=== PATIENT | male | born 1955 | race Caucasian/White ===

== ENCOUNTER 2019-06-22 08:01 | Observation (INO) | payer BC ==
[2019-06-22 08:43] LABS: ABS Eosinophils 0.1 10^3/ul (0-0.6); ABS Lymphocytes 0.6 10^3/ul (1.0-4.8); ABS Monocytes 0.2 10^3/ul (0-0.8); ABS Neutrophils 1.6 10^3/ul (1.5-7.7); Eosinophil % 2.7 %; Hematocrit 18 % (42-52); Mean Corpuscular HGB Conc 34 g/dL (31-36); Mean Corpuscular Hemoglobin 31 pg (27-31); Mean Corpuscular Volume 91 fL (80-94); Mean Platelet Volume 7.8 fL (7.4-10.4); Nucleated Red Blood Cells % 0.2; Platelet Count 60 10^3/uL (150-450); Red Cell Distribution Width 13 % (10-15); White Blood Count 2.5 10^3/uL (3.5-10.8)
[2019-06-22 09:06] LABS: Immature Retic Fraction 0.33; RBC Retic Count 2.02 10^6/uL (4.18-5.48)
[2019-06-22 09:07] LABS: Corrected Retic Count 0.6 % (0.5-1.5); Hematocrit for Retic CNT 18 % (42-52)
[2019-06-22 09:46] LABS: ABS Eosinophils 0.1 10^3/ul (0-0.6); ABS Monocytes 0.5 10^3/ul (0-0.8); ABS Neutrophils 5.8 10^3/ul (1.5-7.7); Eosinophil % 0.8 %; Hematocrit 49 % (42-52); Hemoglobin 16.2 g/dL (14.0-18.0); Mean Corpuscular HGB Conc 34 g/dL (31-36); Mean Corpuscular Hemoglobin 30 pg (27-31); Mean Corpuscular Volume 90 fL (80-94); Mean Platelet Volume 8.7 fL (7.4-10.4); Platelet Count 155 10^3/uL (150-450); Red Blood Count 5.36 10^6 /uL (4.18-5.48); Red Cell Distribution Width 14 % (10-15); White Blood Count 7.5 10^3/uL (3.5-10.8)
[2019-06-22 09:54] LABS: Activated Partial Thrombo Time 33.7 seconds (26.0-38.0)
[2019-06-22 10:01] LABS: Albumin 4.2 g/dL (3.2-5.2); Calcium 9.1 mg/dL (8.6-10.3); Magnesium 2.1 mg/dL (1.9-2.7); Potassium 3.9 mmol/L (3.5-5.0); Total Bilirubin 0.7 mg/dL (0.2-1.0)
[2019-06-22 10:07] LABS: Albumin/Globulin Ratio 1.2 (1-3); BUN/Creatinine Ratio 21.1 (8-20); EGFR African American 102.8 (>60); Globulin 3.4 g/dL (2-4); Total Protein 7.6 g/dL (6.4-8.9)
[2019-06-22 10:16] LABS: INR 1.04 (0.82-1.09)
[2019-06-22 11:35] LABS: Urine Appearance Clear; Urine Bacteria Absent (Absent); Urine Bilirubin Negative (Negative); Urine Blood 1+ (Negative); Urine Color Straw; Urine Glucose Negative (Negative); Urine Ketones Negative (Negative); Urine Nitrite Negative (Negative); Urine Protein Negative (Negative); Urine Red Blood Cell Trace(0-2/hpf) (Absent); Urine Specific Gravity 1.005 (1.010-1.030); Urine Urobilinogen Negative (Negative); Urine White Blood Cell Trace(0-5/hpf) (Absent)
--- NOTE | 2019-06-22 13:48 | CONS ---
NEUROLOGY CONSULTATION NOTE: DATE OF CONSULT: 06/22/19 CONSULTING PROVIDER: CARLOS Kauffman REASON FOR CONSULT: Seizure. CHIEF COMPLAINT: "I was told I had a seizure." HISTORY OF PRESENT ILLNESS: Mr. 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 with seizure-like activity. The history was mostly obtained by the Horace Jordan, who is the patient's partner. Horace stated that he heard a loud noise in Mr. Saldivar's room. Horace rushed to the room and found the patient shaking all over. He was lying in bed on the side with convulsive- like movements for approximately 30 seconds. This was followed by heavy labored breathing, confusion, and tongue bitting. There was no incontinence. Horace called the EMS. When EMS arrived, the patient had stopped convulsing. The convulsion lasted approximately 1 to 1-1/2 minutes. The patient was confused. He was refusing to put on any cloths. However, after 15 minutes, the patient was able to standup to go to the bathroom and urinate. By the time the patient presented to the ER, the patient was awake, alert, and not aware of the incident. The patient also complains of fatigue, morning headaches, excessive drowsiness requiring naps throughout the day, and snoring at night. The patient and his partner sleep in separate rooms due to the patient's excessive loud snoring. He has never been evaluated for obstructive sleep apnea. Yesterday, the patient was reported to work outside in the lawn. The patient was working throughout the day. He did take a caffeine tablet, which he takes on a daily basis. The strength of caffeine tablet is 200 mg. He does complain of insomnia and trouble staying asleep, especially the night before yesterday. The patient also has history of migraine headaches. He is noticing increase in migraine headaches over the last 1 month. He has an aura with flashing lights and blotchy vision for about 5 to 10 minutes. Subsequent to this, he develops unilateral head pain, could be on the right or left. He has nausea and photosensitivity. He does take magnesium daily. Usually, resting for few hours alleviates the pain. He can have a headache for up to 2 days. SEIZURE HISTORY: The patient had 3 convulsions as a child when he was at the age of 2 until 4. The seizures were associated with fevers. He remembers his mother putting him in a cold, almost ice bath. He was never treated with seizure medications. He has no family history of epilepsy. His mother suffered a ministroke. He denied any recreational drug use. He drinks alcohol occasionally. He used to take Xanax for vertigo in 2013, but he has not had any benzodiazepines since then. Seizure risk factors: The patient denied any meningitis or encephalitis. The patient was born as a full-term child with normal vaginal delivery. There was no history of developmental delay. No history of spinal cord or brain surgeries. PAST MEDICAL HISTORY: Migraine headaches, history of vertigo, colectomy resection. The patient has GERD. MEDICATIONS: 1. Multivitamin. 2. Pepcid 20 mg p.o. at bedtime. ALLERGIES: No known drug allergies. FAMILY HISTORY: Mother suffered a ministroke. Father did not have any neurological problems. SOCIAL HISTORY: The patient is retired. He denied any tobacco use. He drinks alcohol occasionally. He used to work as a senior database engineer. REVIEW OF SYSTEMS: A 14-point review of systems was obtained and otherwise negative except for what was mentioned in the HPI. PHYSICAL EXAM: Vitals: Temperature of 97.9, pulse of 103, respiratory rate of 15, oxygen saturation of 97%, blood pressure of 169/76. General: Well- nourished, well- appearing man who is fatigued and has muscle aches, but is in no acute distress. Head: Atraumatic, normocephalic. Eyes: Conjunctivae/ corneas are clear. Oral cavity: He has got a laceration of the lateral aspect of the tongue on the right. Neck is supple and symmetrical with no carotid bruits. No lymphadenopathy. Mallampati score was 3. Respiratory: Clear to auscultation bilaterally with no rhonchi or wheezing. Cardiovascular: Regular rate and rhythm with normal S1, S2 with no murmurs. Extremities: No hammer toes or high arches. No cyanosis. Skin: No skin lesions or lacerations. Psych : Normal mood and broad affect. Easy to establish rapport. Neurological: Mental Status: Awake, alert, and oriented to person, place, time, and general circumstances. Speech and language including expression, comprehension, and repetition were assessed and found to be normal. Cranial Nerves: Pupils equal, round, and reactive to light. Extraocular muscles are intact. Normal confrontation testing bilaterally. Normal sensation to the face bilaterally. No facial asymmetry. Tongue is symmetrical and midline with no atrophy or fasciculation. Motor Examination: 5/5 strength in the upper and lower extremities with normal tone and posture. Sensory: Normal sensation to light touch throughout. Normal vibratory sensation and proprioception at the great toes. Reflexes 2+ in the biceps, triceps, brachioradialis, knee, and ankles bilaterally and patella and Achilles bilaterally. Downgoing plantar responses. Coordination: Normal [id number] and [id number] testing. Gait: Not assessed due to the patient's recent seizure. DIAGNOSTIC STUDIES/LAB DATA: Please note that the patient initially had abnormal CBC that was thought to be due to a lab error; otherwise, WBC is 7.5, RBCs 2.02, hemoglobin of 16, hematocrit of 49, and platelet count of 155. INR is 1.04. Sodium of 140, potassium 3.9, chloride 107, carbon dioxide 24, anion gap of 9, BUN of 19, creatinine of 0.90. BUN to creatinine ratio is 21. Glucose of 127. Lactic acid was 2.6. CK of 185. Urinalysis negative for pyuria. CT of the head without contrast was personally reviewed. There is no evidence of acute intracranial abnormality. ASSESSMENT AND RECOMMENDATIONS: Mr. Donis Saldivar is a 63-year-old man with history of migraine headache and presumably undiagnosed obstructive sleep apnea who presented with generalized convulsive seizure. The patient has history of febrile seizures as a child. His neurological examination is nonfocal other than laceration in the right lateral aspect of the tongue. CT of the head did not reveal any mass effect or tumors. Overall, on clinical grounds, I suspect the patient had a provoked seizure that I suspect is related to undiagnosed obstructive sleep apnea causing hypoxia, dehydration as well as insomnia or sleep deprivation. He has not taken significant amount of caffeine, although the caffeine tablets could also be contributing. We need to rule out any secondary causes of seizures such as tumor and other structural abnormalities. He has no evidence of electrolyte imbalance or any infectious explanation to his seizure. He has history of febrile seizures which increases his risk for temporal lobe epilepsy. Recommendation: I have ordered an MRI of the brain with and without contrast, seizure protocol, bedside EEG to evaluate for epileptiform abnormalities, and a urine tox screen. I also advised the patient to not drive, operate any heavy machinery, climb ladders, or rooftops until cleared by neurologist in the outpatient setting. He will need a referral to his primary care doctor to get an outpatient sleep evaluation to evaluate for obstructive sleep apnea and treat accordingly. The patient and his partner at bedside agreed to the recommendation. In regards to the migraine headaches, I informed the patient that we can prescribe him gabapentin which may help with migraine prevention. This could also be started as an outpatient. I encouraged him to continue taking magnesium supplements daily. I feel if we treat his underlying obstructive sleep apnea, his headaches may decrease as the headaches can be secondary to that. I will continue to follow. [id number]/[facility] #: [id number] NIKA
[2019-06-22 14:03] LABS: TSH (Thyroid Stimulating Horm) 0.71 mcIU/mL (0.34-5.60)
[2019-06-22] MEDS ORDERED: levETIRAcetam 1000 MG IVPREMIX* 100 ML BAG IV ONE (14:38)
[2019-06-22] MEDS ORDERED: Gadoteridol* (CONTRAST) 279.3 MG/ML 10 ML IV ONE (15:25)
[2019-06-22 15:26] LABS: Hemoglobin 6.2 g/dL (14.0-18.0)
--- NOTE | 2019-06-22 15:38 | ED ---
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 Patient states he awoke to find EMS standing over him awakening him. He states he had one seizure at the age of approximately [age] years old and does not remember this. He has had no seizure-like activity since that time. He does have a history of migraines and vertigo, but takes no medications for these. He has not seen a neurologist for these diagnoses. Pt currently states he is fatigued, somewhat confused, but is answering questions appropriately and slow to respond and endorsing tongue pain. Patient denies any recent illness, recent fatigue or other illness. He states he worked outside all day yesterday which might be contributory. He takes no medications. Multivitamins daily. He denies any recent migraines or vertigo-like symptoms. He states he has not had a brain CT in several years to his knowledge. - History Of Current Complaint Chief Complaint: EDSeizure Time Seen by Provider: 06/22/19 08:04 Hx Obtained From: Patient Onset/Duration: Sudden Onset Aggravating Factor(s): Nothing Alleviating Factor(s): Nothing Associated Signs And Symptoms: Negative - Risk Factors SAH Risk Factors: Negative Meningitis Risk Factors: Negative SDH Risk Factor: Negative - Allergies/Home Medications Allergies/Adverse Reactions: Allergies Allergy/AdvReac Type Severity Reaction Status Date / Time No Known Allergies Allergy Verified 06/22/19 08:12 Home Medications: Home Medications Famotidine TAB* [Pepcid 20 MG TAB*] 20 mg PO DAILY 06/22/19 [History Confirmed 06/22/19] Multivitamins/Minerals TAB* [Theragran/minerals TAB*] 1 tab PO DAILY 06/22/19 [ History Confirmed 06/22/19] PMH/Surg Hx/FS Hx/Imm Hx Previously Healthy: Yes Endocrine/Hematology History: Denies: Hx Diabetes Cardiovascular History: Denies: Hx Hypertension, Hx Pacemaker/ICD History: Denies: Hx Renal Disease Sensory History: Denies: Hx Hearing Aid Psychiatric History: Denies: Hx Panic Disorder - Surgical History Surgery Procedure, Year, and Place: PARTIAL COLONECTOMY - SEVERE DIVERTICULITIS - W/ RESECTION 2000. Lt LEG - VARICOSE VEINS - 2005. TONSILS - Immunization History Hx Pertussis Vaccination: No Immunizations Up to Date: Yes Infectious Disease History: No Infectious Disease History: Denies: Traveled Outside the [place] in Last 30 Days - Social History Occupation: Employed Full-time Lives: With Family Alcohol Use: Occasionally Hx Substance Use: No Substance Use Type: Reports: None Hx Tobacco Use: Yes Smoking Status (MU): Former Smoker Review of Systems Positive: Fatigue. Negative: Fever, Chills, Skin Diaphoresis ENT: Other - tongue pain - R sided tongue laceration Negative: Palpitations, Chest Pain Negative: Shortness Of Breath, Cough Negative: Vomiting, Diarrhea, Nausea Positive: see HPI Positive: Weakness Psychological: Normal All Other Systems Reviewed And Are Negative: Yes Physical Exam Triage Information Reviewed: Yes Vital Signs On Initial Exam: Initial Vitals Temp Pulse Resp BP Pulse Ox 97.9 F 102 18 174/96 97 06/22/19 08:09 06/22/19 08:09 06/22/19 08:09 06/22/19 08:09 06/22/19 08:09 Vital Signs Reviewed: Yes Appearance: Positive: Well-Appearing, Well-Nourished Skin: Positive: Warm, Skin Color Reflects Adequate Perfusion Head/Face: Positive: Normal Head/Face Inspection Eyes: Positive: EOMI, CARROLL ENT: Positive: Other - tongue pain - R sided tongue laceration Neck: Positive: Supple Respiratory/Lung Sounds: Positive: Clear to Auscultation, Breath Sounds Present Cardiovascular: Positive: RRR, Pulses are Symmetrical in both Upper and Lower Extremities - Course Musculoskeletal: Positive: Strength/ROM Intact Neurological: Positive: Speech Normal Psychiatric: Positive: Affect/Mood Appropriate AVPU Assessment: Alert Diagnostics - Vital Signs Vital Signs Temp Pulse Resp BP Pulse Ox 06/22/19 14:09 22 161/87 06/22/19 14:00 23 06/22/19 13:39 19 157/97 06/22/19 13:09 14 144/84 06/22/19 13:00 20 06/22/19 12:39 27 160/95 06/22/19 12:09 18 143/91 06/22/19 12:00 15 06/22/19 11:39 20 169/76 06/22/19 11:08 83 23 159/96 97 06/22/19 11:01 76 14 95 06/22/19 10:39 72 20 148/91 95 06/22/19 08:09 97.9 F 102 18 174/96 97 - Laboratory Lab Results: Lab Results 06/22/19 06/22/19 06/22/19 Range/Units 08:27 08:27 08:27 WBC 2.5 L (3.5-10.8) 10^3/uL RBC 2.00 L (4.18-5.48) 10^6 /uL RBC (Retic) 2.02 L (4.18-5.48) 10^6/uL Hgb 6.2 L* (14.0-18.0) g/dL Hct 18 L (42-52) % HCT (Retic) 18 L (42-52) % MCV 91 (80-94) fL MCH 31 (27-31) pg MCHC 34 (31-36) g/dL RDW 13 (10-15) % Plt Count 60 L (150-450) 10^3/uL MPV 7.8 (7.4-10.4) fL Neut % (Auto) 62.7 % Lymph % (Auto) 25.0 % Scott % (Auto) 9.0 % Eos % (Auto) 2.7 % Baso % (Auto) 0.6 % Absolute Neuts (auto) 1.6 (1.5-7.7) 10^3/ul Absolute Lymphs (auto) 0.6 L (1.0-4.8) 10^3/ul Absolute Monos (auto) 0.2 (0-0.8) 10^3/ul Absolute Eos (auto) 0.1 (0-0.6) 10^3/ul Absolute Basos (auto) 0.0 (0-0.2) 10^3/ul Absolute Nucleated RBC 0.0 10^3/ul Nucleated RBC % 0.2 Retic Count, Calc 1.4 (0.5-1.5) % Corrected Retic Count 0.6 (0.5-1.5) % Retic Shift Factor 2.5 Retic Production Index 0.20 Immature Retic Fraction 0.33 Mean Retic Volume 105.1 INR (Anticoag Therapy) Cancelled APTT Cancelled Sodium Cancelled Potassium Cancelled Chloride Cancelled Carbon Dioxide Cancelled Anion Gap Cancelled BUN Cancelled Creatinine Cancelled Est GFR ( Amer) Cancelled Est GFR (Non-Af Amer) Cancelled BUN/Creatinine Ratio Cancelled Glucose Cancelled Lactic Acid (0.5-2.0) mmol/L Calcium Cancelled Magnesium Cancelled Total Bilirubin Cancelled AST Cancelled ALT Cancelled Alkaline Phosphatase Cancelled Lactate Dehydrogenase Cancelled Total Creatine Kinase 36 (10-223) U/L Total Protein Cancelled Albumin Cancelled Globulin Cancelled Albumin/Globulin Ratio Cancelled Vitamin B12 TSH Urine Color Urine Appearance Urine pH (5-9) Ur Specific Lamar (1.010-1.030) Urine Protein (Negative) Urine Ketones (Negative) Urine Blood (Negative) Urine Nitrate (Negative) Urine Bilirubin (Negative) Urine Urobilinogen (Negative) Ur Leukocyte Esterase (Negative) Urine WBC (Auto) (Absent) Urine RBC (Auto) (Absent) Urine Bacteria (Absent) Hyaline Casts (Absent) Urine Glucose (Negative) Blood Type Antibody Screen Crossmatch 06/22/19 06/22/19 06/22/19 Range/Units 08:27 08:27 09:24 WBC (3.5-10.8) 10^3/uL RBC (4.18-5.48) 10^6 /uL RBC (Retic) (4.18-5.48) 10^6/uL Hgb (14.0-18.0) g/dL Hct (42-52) % HCT (Retic) (42-52) % MCV (80-94) fL MCH (27-31) pg MCHC (31-36) g/dL RDW (10-15) % Plt Count (150-450) 10^3/uL MPV (7.4-10.4) fL Neut % (Auto) % Lymph % (Auto) % Scott % (Auto) % Eos % (Auto) % Baso % (Auto) % Absolute Neuts (auto) (1.5-7.7) 10^3/ul Absolute Lymphs (auto) (1.0-4.8) 10^3/ul Absolute Monos (auto) (0-0.8) 10^3/ul Absolute Eos (auto) (0-0.6) 10^3/ul Absolute Basos (auto) (0-0.2) 10^3/ul Absolute Nucleated RBC 10^3/ul Nucleated RBC % Retic Count, Calc (0.5-1.5) % Corrected Retic Count (0.5-1.5) % Retic Shift Factor Retic Production Index Immature Retic Fraction Mean Retic Volume INR (Anticoag Therapy) 1.04 APTT 33.7 Sodium Potassium Chloride Carbon Dioxide Anion Gap BUN Creatinine Est GFR ( Amer) Est GFR (Non-Af Amer) BUN/Creatinine Ratio Glucose Lactic Acid 2.6 H* (0.5-2.0) mmol/L Calcium Magnesium Total Bilirubin AST ALT Alkaline Phosphatase Lactate Dehydrogenase Total Creatine Kinase (10-223) U/L Total Protein Albumin Globulin Albumin/Globulin Ratio Vitamin B12 TSH Urine Color Urine Appearance Urine pH (5-9) Ur Specific Lamar (1.010-1.030) Urine Protein (Negative) Urine Ketones (Negative) Urine Blood (Negative) Urine Nitrate (Negative) Urine Bilirubin (Negative) Urine Urobilinogen (Negative) Ur Leukocyte Esterase (Negative) Urine WBC (Auto) (Absent) Urine RBC (Auto) (Absent) Urine Bacteria (Absent) Hyaline Casts (Absent) Urine Glucose (Negative) Blood Type B Positive Antibody Screen Negative Crossmatch See Detail 06/22/19 06/22/19 06/22/19 Range/Units 09:38 09:39 09:39 WBC 7.5 (3.5-10.8) 10^3/uL RBC 5.36 (4.18-5.48) 10^6 /uL RBC (Retic) (4.18-5.48) 10^6/uL Hgb 16.2 (14.0-18.0) g/dL Hct 49 (42-52) % HCT (Retic) (42-52) % MCV 90 (80-94) fL MCH 30 (27-31) pg MCHC 34 (31-36) g/dL RDW 14 (10-15) % Plt Count 155 (150-450) 10^3/uL MPV 8.7 (7.4-10.4) fL Neut % (Auto) 77.7 % Lymph % (Auto) 14.0 % Scott % (Auto) 7.1 % Eos % (Auto) 0.8 % Baso % (Auto) 0.4 % Absolute Neuts (auto) 5.8 (1.5-7.7) 10^3/ul Absolute Lymphs (auto) 1.0 (1.0-4.8) 10^3/ul Absolute Monos (auto) 0.5 (0-0.8) 10^3/ul Absolute Eos (auto) 0.1 (0-0.6) 10^3/ul Absolute Basos (auto) 0.0 (0-0.2) 10^3/ul Absolute Nucleated RBC 0.0 10^3/ul Nucleated RBC % 0.0 Retic Count, Calc (0.5-1.5) % Corrected Retic Count (0.5-1.5) % Retic Shift Factor Retic Production Index Immature Retic Fraction Mean Retic Volume INR (Anticoag Therapy) APTT Sodium 140 Potassium 3.9 Chloride 107 Carbon Dioxide 24 Anion Gap 9 BUN 19 Creatinine 0.90 Est GFR ( Amer) 102.8 Est GFR (Non-Af Amer) 85.0 BUN/Creatinine Ratio 21.1 H Glucose 127 H Lactic Acid (0.5-2.0) mmol/L Calcium 9.1 Magnesium 2.1 Total Bilirubin 0.70 AST 30 ALT 39 Alkaline Phosphatase 56 Lactate Dehydrogenase Cancelled Total Creatine Kinase 185 (10-223) U/L Total Protein 7.6 Albumin 4.2 Globulin 3.4 Albumin/Globulin Ratio 1.2 Vitamin B12 Cancelled TSH Cancelled Urine Color Urine Appearance Urine pH (5-9) Ur Specific Lamar (1.010-1.030) Urine Protein (Negative) Urine Ketones (Negative) Urine Blood (Negative) Urine Nitrate (Negative) Urine Bilirubin (Negative) Urine Urobilinogen (Negative) Ur Leukocyte Esterase (Negative) Urine WBC (Auto) (Absent) Urine RBC (Auto) (Absent) Urine Bacteria (Absent) Hyaline Casts (Absent) Urine Glucose (Negative) Blood Type Antibody Screen Crossmatch 06/22/19 06/22/19 Range/Units 11:04 12:54 WBC (3.5-10.8) 10^3/uL RBC (4.18-5.48) 10^6 /uL RBC (Retic) (4.18-5.48) 10^6/uL Hgb (14.0-18.0) g/dL Hct (42-52) % HCT (Retic) (42-52) % MCV (80-94) fL MCH (27-31) pg MCHC (31-36) g/dL RDW (10-15) % Plt Count (150-450) 10^3/uL MPV (7.4-10.4) fL Neut % (Auto) % Lymph % (Auto) % Scott % (Auto) % Eos % (Auto) % Baso % (Auto) % Absolute Neuts (auto) (1.5-7.7) 10^3/ul Absolute Lymphs (auto) (1.0-4.8) 10^3/ul Absolute Monos (auto) (0-0.8) 10^3/ul Absolute Eos (auto) (0-0.6) 10^3/ul Absolute Basos (auto) (0-0.2) 10^3/ul Absolute Nucleated RBC 10^3/ul Nucleated RBC % Retic Count, Calc (0.5-1.5) % Corrected Retic Count (0.5-1.5) % Retic Shift Factor Retic Production Index Immature Retic Fraction Mean Retic Volume INR (Anticoag Therapy) APTT Sodium Potassium Chloride Carbon Dioxide Anion Gap BUN Creatinine Est GFR ( Amer) Est GFR (Non-Af Amer) BUN/Creatinine Ratio Glucose Lactic Acid (0.5-2.0) mmol/L Calcium Magnesium Total Bilirubin AST ALT Alkaline Phosphatase Lactate Dehydrogenase Total Creatine Kinase (10-223) U/L Total Protein Albumin Globulin Albumin/Globulin Ratio Vitamin B12 712 TSH 0.71 Urine Color Straw Urine Appearance Clear Urine pH 7.0 (5-9) Ur Specific Lamar 1.005 L (1.010-1.030) Urine Protein Negative (Negative) Urine Ketones Negative (Negative) Urine Blood 1+ A (Negative) Urine Nitrate Negative (Negative) Urine Bilirubin Negative (Negative) Urine Urobilinogen Negative (Negative) Ur Leukocyte Esterase Negative (Negative) Urine WBC (Auto) Trace(0-5/hpf) (Absent) Urine RBC (Auto) Trace(0-2/hpf) (Absent) Urine Bacteria Absent (Absent) Hyaline Casts Present A (Absent) Urine Glucose Negative (Negative) Blood Type Antibody Screen Crossmatch Result Diagrams: 06/22/19 09:39 06/22/19 09:38 Lab Statement: Any lab studies that have been ordered have been reviewed, and results considered in the medical decision making process. 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 Patient states he awoke to find EMS standing over him awakening him. He states he had one seizure at the age of approximately [age] years old and does not remember this. He has had no seizure-like activity since that time. He does have a history of migraines and vertigo, but takes no medications for these. He has not seen a neurologist for these diagnoses. Pt currently states he is fatigued, somewhat confused, but is answering questions appropriately and slow to respond and endorsing tongue pain. Patient denies any recent illness, recent fatigue or other illness. He states he worked outside all day yesterday which might be contributory. He takes no medications. Multivitamins daily. He denies any recent migraines or vertigo-like symptoms. He states he has not had a brain CT in several years to his knowledge. Labs obtained and originally are all showing pancytopenia. Labs redrawn and were all WNL. Discussed case with Dr. Muhammad who will see patient in the ED. on physical examination, patient appears well, answering questions appropriately, however slow to respond. Lungs CTA. RRR. No evidence of head trauma. Small laceration to the right side of the tongue with no contusion. CT obtained: No acute findings. Dr Muhammad recommends MRI and EEG and admission. Discussed case with Dr. Henning who will admit the patient. It was noted that the patient had a 55 second seizure while EEG was performed. He is admitted and given Keppra. - Diagnoses Provider Diagnoses: Seizure - Physician Notifications Discussed Care of Patient With: Lorenzo Muhammad Instructed by Provider To: Admit As Inpatient - Critical Care Time Critical Care Time: 30-74 min Discharge - Sign-Out/Discharge Documenting (check all that apply): Patient Departure Patient Received Moderate/Deep Sedation with Procedure: No - Discharge Plan Condition: Fair Disposition: ADMITTED TO [facility] Referrals: Daiana Antonio MD [Primary Care Provider] - - Billing Disposition and Condition Condition: FAIR Disposition: Admitted to [facility] - Attestation Statements Scribe Documentation Reviewed: Yes Provider Attestation: I was available for consultation for this patient. I did not participate in any medical decision making or disposition decisions unless I am specifically named in the chart as having consulted on the patient. If I have consulted on the patient, please see my own ED note on the patient encounter. Dulce Booker MD
--- NOTE | 2019-06-22 16:58 | EEG ---
ELECTROENCEPHALOGRAPHY: DATE OF STUDY: 06/22/19 - ROOM #416 DATE READ: 06/22/19 ORDERED BY: Dr. Lorenzo Muhammad. CLINICAL PROBLEM: Mr. Saldivar is a 63-year-old man with a history of febrile seizures, who developed new onset seizures. The seizures were described as generalized convulsion. This EEG was obtained to evaluate for epileptiform abnormalities or electrographic seizures. Duration: 12:50-13:17 MEDICATIONS: None. CLINICAL STATE: Awake and sleep. REPORT: The most prominent feature of this recording was 1 recorded electrographic seizure with minimal clinical correlation. At 13:12:54, there were semirhythmic focal medial to high amplitude sharply contoured 6-7 Hz theta activity that evolves into 3-4 Hz delta activity that sharply contoured over the right lateral frontotemporal region lasting for approximately 55 seconds. There was a gradual discontinuation of this rhythm at 13:14:11. There were no clear clinical correlation except for when the technologist asked the patient if he was okay, he stated that he did not know. Otherwise throughout the recording, there were frequent high amplitude, frontally predominant, intermittent rhythmic to semirhythmic delta activity seen throughout the recording. There were also occasional, diffuse, polymorphic, 3-7 Hz delta and theta slowing lasting 0.5 to 1 second throughout the recording. There were occasional sharp epileptiform discharges in the right temporal region , maximal at T4. These were accentuated during drowsy state. Otherwise, the waking background showed appropriate organization with clearly defined anterior-posterior voltage and frequency gradients. There was a well- defined posterior dominant rhythm of 10 Hz, which was symmetrical and showed normal reactivity. Anteriorly, there was an expected pattern of lower voltage, irregular, mixed faster frequencies. Hyperventilation and photic stimulation were not performed. Attenuation of the occipital rhythm accompanied drowsiness. There were some organized sleep spindles and vertex waves seen throughout the recording. The sleep transient showed appropriate morphology and are bilaterally synchronous and symmetrical. EKG, normal sinus rhythm with a rate of 75 beats per minute. During the electrographic focal seizure, the heart rate increased with a rate of 100 beats per minute. CLINICAL IMPRESSION: This is an abnormal awake and sleep EEG due to the followin. Focal, semirhythmic sharply contoured theta activity that evolves into delta activity, lasting for 55 seconds in the right frontotemporal region. This is suggestive of a focal electrographic seizure with some clinical correlation of confusion during the episode. 2. Occasional right temporal sharp epileptiform discharges seen predominately during drowsy state. These are suggestive of increase epileptogenic potential emanating from the right temporal lobe. 3. Diffuse polymorphic slowing with frontal intermittent rhythmic delta activity. This is suggestive of a mild, nonspecific, diffuse encephalopathy. I discussed the above findings with Barby and Dr. Henning. We have agreed to start the patient on antiseizure medication with levetiracetam 1000 mg IV and to continue him on 500 mg twice daily. We will obtain a levetiracetam trough level tomorrow morning. [id number]/[facility] #: [id number] [facility]
[2019-06-22] MEDS ORDERED: Ondansetron INJ* 2 MG/ML VIAL IV PRN (17:44)
[2019-06-22] MEDS ORDERED: Acetaminophen TAB* 325 MG PO PRN (17:44)
[2019-06-22] MEDS ORDERED: Al Hydrox/Mg Hydrox/Simet LIQ* 30 ML UDC PO PRN (17:44)
[2019-06-22] MEDS ORDERED: Senna TAB 8.6 mg* TAB PO PRN (17:44)
[2019-06-22] MEDS ORDERED: NS 0.9% IVPB SCH (18:00)
[2019-06-22] MEDS ORDERED: Enoxaparin(*) 40 MG/0.4 ML SYR SUBCUT SCH (18:00)
[2019-06-22] MEDS ORDERED: ACYCLOVIR IVPB SCH (18:00)
[2019-06-22] MEDS: NS 0.9% IVPB SCH (19:33)
[2019-06-22] MEDS: ACYCLOVIR IVPB SCH (19:33)
[2019-06-22] MEDS ORDERED: levETIRAcetam TAB* 500 MG PO SCH (21:00)
--- NOTE | 2019-06-22 22:12 | HP ---
CC: Dr. Daiana Antonio; Dr. Muhammad * HISTORY AND PHYSICAL: DATE OF ADMISSION: 06/22/19 PRIMARY CARE PROVIDER: Dr. Daiana Antonio. ATTENDING PHYSICIAN WHILE IN THE HOSPITAL: Dr. Rhonda Henning * (dictated by CARLOS Whaley). CONSULTING NEUROLOGIST: Dr. Muhammad. CHIEF COMPLAINT: Witnessed seizure. HISTORY OF PRESENT ILLNESS: Donis Saldivar is a 63-year-old white male with past medical history of migraines and GERD, who presents to the emergency department via EMS after his partner witnessed a seizure at 7:30 in the morning. The patient's partner found the patient in his bedroom convulsing, which lasted for approximately 1.5 minutes to 2 minutes. There was no loss of bowel or bladder control. The patient did experience tongue biting. After the convulsions were completed, there was a period of 20 to 30 minutes when the patient was acting disoriented and "a little hostile" per his partner, James. The patient has vague memory of this 20- to 30-minute period. The patient's partner reports that he was refusing to put clothing on and the patient has no memory of this. The patient reports that he had a history of febrile seizure at age 2 as a child. He has been having increased frequency of migraines recently, which is now increased to 2 per week. His migraines are associated with an aura of flashing lights, which are also associated with nausea and photophobia. Leading up to this event, the patient was feeling well other than increased frequency of migraines. He notes feeling "like a 29-year-old yesterday." He did a lot of yard work yesterday. At the time of evaluation, the patient denies visual changes, headaches, numbness or tingling of extremities, weakness, chest pain, difficulty breathing, fever or chills. PAST MEDICAL HISTORY: 1. Migraines. 2. GERD. 3. Diverticulitis. PAST SURGICAL HISTORY: 1. Colectomy due to diverticulitis. 2. Varicose vein procedure. HOME MEDICATIONS: 1. Multivitamin 1 tab p.o. daily. 2. Famotidine 20 mg p.o. daily. ALLERGIES: No known drug allergies. FAMILY HISTORY: Mother of age 80 due to CVA and had history of CHF. Father of age 97 due to "natural causes." His father was otherwise healthy. SOCIAL HISTORY: The patient lives with his partner, James Singleton. He would like James to be his medical surrogate decision maker should he need one. His phone number is [phone]. The patient is a retired manager [employer]. He drinks 1 alcoholic beverage per week. He previously smoked for approximately 5 years in the 80s and has not smoked since. He smokes marijuana less than once per month. Otherwise denies illicit drug use. REVIEW OF SYSTEMS: An 11-point review of systems was completed, and all pertinent positives and negatives are above in the HPI. All other systems are negative. PHYSICAL EXAMINATION GENERAL: Elderly white male, laying upright in hospital bed, appearing comfortable, in no acute distress. Partner at bedside. HEENT: Head: Normocephalic, atraumatic. Eyes: PERRL. Sclerae anicteric. No nystagmus. ENT: Mucous membranes moist. Lacerations to the lateral aspect of the tongue bilaterally. NECK: Supple without JVD. LUNGS: Clear to auscultation throughout. CARDIO: Regular rate and rhythm, without murmurs, rubs or gallops. ABDOMEN: Soft, nontender, nondistended without hepatosplenomegaly. EXTREMITIES: No clubbing, cyanosis or edema. NEURO: The patient is alert and oriented x3. No focal deficits. Sensation to light touch is intact throughout. Face is symmetrical. Strength is 5/5 in all extremities. SKIN: Skin is warm, dry, and intact. DIAGNOSTIC STUDIES/LAB DATA: Initial blood counts from the CBC work to me demonstrate and reflect inaccurate labs. Please see the labs from 9 a.m. White blood cell count 7.5, hemoglobin 16.2, hematocrit 49, platelet count 155. BMP: Sodium 140, potassium 3.9, chloride 107, carbon dioxide 24, BUN 19, creatinine 0.9, glucose 127, lactic acid 2.6, calcium 9.1, magnesium 2.1. Unremarkable LFTs. TSH 0.71. Vitamin B12 of 712. Brain CT on 06/22/19, impression: No evidence for acute intracranial abnormality. Brain MRI on 06/22/19, impression: T2/FLAIR hyperintensity extends along the amygdala and hippocampi" bilaterally. Although, this could be postictal in etiology, underlying HSV encephalitis or limbic encephalitis cannot be excluded. EEG on 06/22/19, clinical impression: This is an abnormal awake and sleep EEG due to: 1. Focal, semirhythmic, sharply contoured theta activity that evolves into delta activity, lasting for 55 seconds in the right frontotemporal region. This is suggestive of a focal electrographic seizure with [id number] clinical correlation as the patient reported some confusion during this episode. 2. Diffuse polymorphic slowing of frontal intermittent rhythmic delta activity. This is suggestive of a mild, nonspecific, diffuse encephalopathy. ASSESSMENT AND PLAN: Donis Saldivar is a 63-year-old white male with past medical history significant for migraines and gastroesophageal reflux disease, who presents to the emergency department after a witnessed seizure. The patient will be admitted OBV for: 1. Seizure. Other than febrile seizures in childhood, the patient does not have a history of prior seizure. His brain MRI demonstrates a possibility of a HSV encephalitis. The patient is not clinically with symptoms of encephalitis, but this must still be ruled out. Dr. Muhammad recommends starting acyclovir, which has been ordered and a lumbar puncture will be performed tomorrow to test for HSV. The patient received IV Keppra 1000 mg in the emergency department and I will start 1000 mg p.o. b.i.d. starting tomorrow morning given the patient 's weight and per Dr. Muhammad's recommendations. A levetiracetam level will be ordered prior to administration of the new oral dosing, seizure precautions were ordered, holding Lovenox in anticipation of the lumbar puncture tomorrow. 2. Migraines. Dr. Muhammad made recommendations in consultation regarding potentially starting gabapentin in the outpatient setting. This will not be started during this hospitalization. Additionally, on followup, the patient will benefit from sleep study set up by his primary care provider given that Dr. Muhammad has concerns that the patient may have undiagnosed obstructive sleep apnea. 3. Gastroesophageal reflux disease. Continue the patient's home famotidine. 4. FEN. The patient may have regular unrestricted diet. We will monitor his hydration status closely given the acyclovir administration. Electrolytes are within normal limits. 5. Code status. The patient is full code. 6. DVT prophylaxis. Holding chemical prophylaxis in the setting of anticipation of lumbar puncture. I have ordered SCDs. The patient has a DVT risk score of 2. TIME SPENT: Approximately 50 minutes was spent on this admission, approximately half this time was spent at bedside. This case has been reviewed by my attending Dr. Rhonda Henning, and she agrees with this plan of this care. CARLOS WHALEY [id number]/[facility] #: [id number] [facility]
[2019-06-23] MEDS: ACYCLOVIR IVPB SCH ×2 (02:25→08:56)
[2019-06-23] MEDS: NS 0.9% IVPB SCH ×2 (02:25→08:56)
[2019-06-23] MEDS ORDERED: Lidocaine 1% MPF ** 5 ML VIAL INJ ONE (08:25)
[2019-06-23] MEDS ORDERED: Lidocaine 1% INJ* 10 MG/ML 30 ML SDV INJ ONE (08:25)
[2019-06-23 08:55] LABS: ABS Eosinophils 0.2 10^3/ul (0-0.6); ABS Lymphocytes 1.7 10^3/ul (1.0-4.8); ABS Monocytes 0.9 10^3/ul (0-0.8); ABS Neutrophils 5.7 10^3/ul (1.5-7.7); Eosinophil % 2.2 %; Hematocrit 44 % (42-52); Hemoglobin 15.3 g/dL (14.0-18.0); Lymphocyte % 20.4 %; Mean Corpuscular HGB Conc 35 g/dL (31-36); Mean Corpuscular Hemoglobin 31 pg (27-31); Mean Corpuscular Volume 90 fL (80-94); Mean Platelet Volume 9.3 fL (7.4-10.4); Platelet Count 152 10^3/uL (150-450); Red Blood Count 4.95 10^6 /uL (4.18-5.48); Red Cell Distribution Width 14 % (10-15); White Blood Count 8.6 10^3/uL (3.5-10.8)
[2019-06-23] MEDS: levETIRAcetam TAB* 500 MG PO SCH ×2 (08:56→20:59)
[2019-06-23] MEDS: Multivitamins/Minerals TAB PO SCH (08:56)
[2019-06-23] MEDS: Famotidine TAB* 20 MG PO SCH (08:58)
[2019-06-23 09:05] LABS: BUN/Creatinine Ratio 18.1 (8-20); Calcium 8.8 mg/dL (8.6-10.3); EGFR African American 97.8 (>60); EGFR Non-African American 80.8 (>60); Potassium 3.9 mmol/L (3.5-5.0)
--- NOTE | 2019-06-23 09:39 | PN ---
<Scarlett Pepper - Last Filed: 06/23/19 14:41> Subjective Date of Service: 06/23/19 Interval History: Noted patient had another episode of seizure yesterday after admission. 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 He had herpes zoster after that which presented as left arm pain. [place], he recalled a tick bite one month ago, and he extracted the embeded tick. Otherwise, he is well, no fever/chills, no rashes. Objective Active Medications: Acetaminophen (Tylenol Tab*) 650 mg PO Q4H PRN PRN Reason: FEVER/PAIN Al Hydrox/Mg Hydrox/Simethicone (Maalox Plus*) 30 ml PO Q6H PRN PRN Reason: INDIGESTION Famotidine (Pepcid Tab*) 20 mg PO DAILY [facility] Last Admin: 06/23/19 08:58 Dose: Not Given Acyclovir Sodium 710 mg/ (Sodium Chloride) 264.2 mls @ 264.2 mls/hr IVPB Q8H [facility] Last Admin: 06/23/19 08:56 Dose: 264.2 mls/hr Levetiracetam (Keppra Tab*) 1,000 mg PO BID [facility] Last Admin: 06/23/19 08:56 Dose: 1,000 mg Multivitamins/Minerals (Theragran/Minerals Tab*) 1 tab PO DAILY [facility] Last Admin: 06/23/19 08:56 Dose: 1 tab Ondansetron HCl (Zofran Inj*) 4 mg IV Q4H PRN PRN Reason: NAUSEA/VOMITING Senna (Senokot 8.6 Mg Tab*) 1 tab PO BID PRN PRN Reason: CONSTIPATION Vital Signs - 8 hr 06/23/19 03:15 Temperature 98.6 F Pulse Rate 74 Respiratory 18 Rate Blood Pressure 111/60 (mmHg) O2 Sat by Pulse 99 Oximetry Oxygen Devices in Use Now: None Exam: Lying on the bed, comfortable looking Heart: normal S1S2 Lung: clear Abdomen: soft, non tender Lower limb: no edema Skin: no rash noted Neurological: power full over all extremities, neck soft, no stiffness. Result Diagrams: 06/23/19 06:09 06/23/19 06:09 Additional Lab and Data: Lab Results 06/22/19 06/22/19 06/22/19 Range/Units 08:27 08:27 08:27 WBC 2.5 L (3.5-10.8) 10^3/uL RBC 2.00 L (4.18-5.48) 10^6 /uL RBC (Retic) 2.02 L (4.18-5.48) 10^6/uL Hgb 6.2 L* (14.0-18.0) g/dL Hct 18 L (42-52) % HCT (Retic) 18 L (42-52) % MCV 91 (80-94) fL MCH 31 (27-31) pg MCHC 34 (31-36) g/dL RDW 13 (10-15) % Plt Count 60 L (150-450) 10^3/uL MPV 7.8 (7.4-10.4) fL Neut % (Auto) 62.7 % Lymph % (Auto) 25.0 % Norman % (Auto) 9.0 % Eos % (Auto) 2.7 % Baso % (Auto) 0.6 % Absolute Neuts (auto) 1.6 (1.5-7.7) 10^3/ul Absolute Lymphs (auto) 0.6 L (1.0-4.8) 10^3/ul Absolute Monos (auto) 0.2 (0-0.8) 10^3/ul Absolute Eos (auto) 0.1 (0-0.6) 10^3/ul Absolute Basos (auto) 0.0 (0-0.2) 10^3/ul Absolute Nucleated RBC 0.0 10^3/ul Nucleated RBC % 0.2 Retic Count, Calc 1.4 (0.5-1.5) % Corrected Retic Count 0.6 (0.5-1.5) % Retic Shift Factor 2.5 Retic Production Index 0.20 Immature Retic Fraction 0.33 Mean Retic Volume 105.1 INR (Anticoag Therapy) Cancelled APTT Cancelled Sodium Cancelled Potassium Cancelled Chloride Cancelled Carbon Dioxide Cancelled Anion Gap Cancelled BUN Cancelled Creatinine Cancelled Est GFR ( Amer) Cancelled Est GFR (Non-Af Amer) Cancelled BUN/Creatinine Ratio Cancelled Glucose Cancelled Lactic Acid (0.5-2.0) mmol/L Calcium Cancelled Magnesium Cancelled Total Bilirubin Cancelled AST Cancelled ALT Cancelled Alkaline Phosphatase Cancelled Lactate Dehydrogenase Cancelled Total Creatine Kinase 36 (10-223) U/L Total Protein Cancelled Albumin Cancelled Globulin Cancelled Albumin/Globulin Ratio Cancelled Vitamin B12 TSH Urine Color Urine Appearance Urine pH (5-9) Ur Specific [place] (1.010-1.030) Urine Protein (Negative) Urine Ketones (Negative) Urine Blood (Negative) Urine Nitrate (Negative) Urine Bilirubin (Negative) Urine Urobilinogen (Negative) Ur Leukocyte Esterase (Negative) Urine WBC (Auto) (Absent) Urine RBC (Auto) (Absent) Urine Bacteria (Absent) Hyaline Casts (Absent) Urine Glucose (Negative) Blood Type Antibody Screen Crossmatch 06/22/19 06/22/19 06/22/19 Range/Units 08:27 08:27 09:24 WBC (3.5-10.8) 10^3/uL RBC (4.18-5.48) 10^6 /uL RBC (Retic) (4.18-5.48) 10^6/uL Hgb (14.0-18.0) g/dL Hct (42-52) % HCT (Retic) (42-52) % MCV (80-94) fL MCH (27-31) pg MCHC (31-36) g/dL RDW (10-15) % Plt Count (150-450) 10^3/uL MPV (7.4-10.4) fL Neut % (Auto) % Lymph % (Auto) % Norman % (Auto) % Eos % (Auto) % Baso % (Auto) % Absolute Neuts (auto) (1.5-7.7) 10^3/ul Absolute Lymphs (auto) (1.0-4.8) 10^3/ul Absolute Monos (auto) (0-0.8) 10^3/ul Absolute Eos (auto) (0-0.6) 10^3/ul Absolute Basos (auto) (0-0.2) 10^3/ul Absolute Nucleated RBC 10^3/ul Nucleated RBC % Retic Count, Calc (0.5-1.5) % Corrected Retic Count (0.5-1.5) % Retic Shift Factor Retic Production Index Immature Retic Fraction Mean Retic Volume INR (Anticoag Therapy) 1.04 APTT 33.7 Sodium Potassium Chloride Carbon Dioxide Anion Gap BUN Creatinine Est GFR ( Amer) Est GFR (Non-Af Amer) BUN/Creatinine Ratio Glucose Lactic Acid 2.6 H* (0.5-2.0) mmol/L Calcium Magnesium Total Bilirubin AST ALT Alkaline Phosphatase Lactate Dehydrogenase Total Creatine Kinase (10-223) U/L Total Protein Albumin Globulin Albumin/Globulin Ratio Vitamin B12 TSH Urine Color Urine Appearance Urine pH (5-9) Ur Specific [place] (1.010-1.030) Urine Protein (Negative) Urine Ketones (Negative) Urine Blood (Negative) Urine Nitrate (Negative) Urine Bilirubin (Negative) Urine Urobilinogen (Negative) Ur Leukocyte Esterase (Negative) Urine WBC (Auto) (Absent) Urine RBC (Auto) (Absent) Urine Bacteria (Absent) Hyaline Casts (Absent) Urine Glucose (Negative) Blood Type B Positive Antibody Screen Negative Crossmatch See Detail 06/22/19 06/22/19 06/22/19 Range/Units 09:38 09:39 09:39 WBC 7.5 (3.5-10.8) 10^3/uL RBC 5.36 (4.18-5.48) 10^6 /uL RBC (Retic) (4.18-5.48) 10^6/uL Hgb 16.2 (14.0-18.0) g/dL Hct 49 (42-52) % HCT (Retic) (42-52) % MCV 90 (80-94) fL MCH 30 (27-31) pg MCHC 34 (31-36) g/dL RDW 14 (10-15) % Plt Count 155 (150-450) 10^3/uL MPV 8.7 (7.4-10.4) fL Neut % (Auto) 77.7 % Lymph % (Auto) 14.0 % Norman % (Auto) 7.1 % Eos % (Auto) 0.8 % Baso % (Auto) 0.4 % Absolute Neuts (auto) 5.8 (1.5-7.7) 10^3/ul Absolute Lymphs (auto) 1.0 (1.0-4.8) 10^3/ul Absolute Monos (auto) 0.5 (0-0.8) 10^3/ul Absolute Eos (auto) 0.1 (0-0.6) 10^3/ul Absolute Basos (auto) 0.0 (0-0.2) 10^3/ul Absolute Nucleated RBC 0.0 10^3/ul Nucleated RBC % 0.0 Retic Count, Calc (0.5-1.5) % Corrected Retic Count (0.5-1.5) % Retic Shift Factor Retic Production Index Immature Retic Fraction Mean Retic Volume INR (Anticoag Therapy) APTT Sodium 140 Potassium 3.9 Chloride 107 Carbon Dioxide 24 Anion Gap 9 BUN 19 Creatinine 0.90 Est GFR ( Amer) 102.8 Est GFR (Non-Af Amer) 85.0 BUN/Creatinine Ratio 21.1 H Glucose 127 H Lactic Acid (0.5-2.0) mmol/L Calcium 9.1 Magnesium 2.1 Total Bilirubin 0.70 AST 30 ALT 39 Alkaline Phosphatase 56 Lactate Dehydrogenase Cancelled Total Creatine Kinase 185 (10-223) U/L Total Protein 7.6 Albumin 4.2 Globulin 3.4 Albumin/Globulin Ratio 1.2 Vitamin B12 Cancelled TSH Cancelled Urine Color Urine Appearance Urine pH (5-9) Ur Specific [place] (1.010-1.030) Urine Protein (Negative) Urine Ketones (Negative) Urine Blood (Negative) Urine Nitrate (Negative) Urine Bilirubin (Negative) Urine Urobilinogen (Negative) Ur Leukocyte Esterase (Negative) Urine WBC (Auto) (Absent) Urine RBC (Auto) (Absent) Urine Bacteria (Absent) Hyaline Casts (Absent) Urine Glucose (Negative) Blood Type Antibody Screen Crossmatch 06/22/19 06/22/19 Range/Units 11:04 12:54 WBC (3.5-10.8) 10^3/uL RBC (4.18-5.48) 10^6 /uL RBC (Retic) (4.18-5.48) 10^6/uL Hgb (14.0-18.0) g/dL Hct (42-52) % HCT (Retic) (42-52) % MCV (80-94) fL MCH (27-31) pg MCHC (31-36) g/dL RDW (10-15) % Plt Count (150-450) 10^3/uL MPV (7.4-10.4) fL Neut % (Auto) % Lymph % (Auto) % Norman % (Auto) % Eos % (Auto) % Baso % (Auto) % Absolute Neuts (auto) (1.5-7.7) 10^3/ul Absolute Lymphs (auto) (1.0-4.8) 10^3/ul Absolute Monos (auto) (0-0.8) 10^3/ul Absolute Eos (auto) (0-0.6) 10^3/ul Absolute Basos (auto) (0-0.2) 10^3/ul Absolute Nucleated RBC 10^3/ul Nucleated RBC % Retic Count, Calc (0.5-1.5) % Corrected Retic Count (0.5-1.5) % Retic Shift Factor Retic Production Index Immature Retic Fraction Mean Retic Volume INR (Anticoag Therapy) APTT Sodium Potassium Chloride Carbon Dioxide Anion Gap BUN Creatinine Est GFR ( Amer) Est GFR (Non-Af Amer) BUN/Creatinine Ratio Glucose Lactic Acid (0.5-2.0) mmol/L Calcium Magnesium Total Bilirubin AST ALT Alkaline Phosphatase Lactate Dehydrogenase Total Creatine Kinase (10-223) U/L Total Protein Albumin Globulin Albumin/Globulin Ratio Vitamin B12 712 TSH 0.71 Urine Color Straw Urine Appearance Clear Urine pH 7.0 (5-9) Ur Specific [place] 1.005 L (1.010-1.030) Urine Protein Negative (Negative) Urine Ketones Negative (Negative) Urine Blood 1+ A (Negative) Urine Nitrate Negative (Negative) Urine Bilirubin Negative (Negative) Urine Urobilinogen Negative (Negative) Ur Leukocyte Esterase Negative (Negative) Urine WBC (Auto) Trace(0-5/hpf) (Absent) Urine RBC (Auto) Trace(0-2/hpf) (Absent) Urine Bacteria Absent (Absent) Hyaline Casts Present A (Absent) Urine Glucose Negative (Negative) Blood Type Antibody Screen Crossmatch Assess/Plan/Problems-Billing Assessment: 63 y/o male with history of migraine, GERD, diverticulitis s/p hemicolectomy, febrile seizure in childhood presented to ED with seizure. He was found to have right frontotemporal region focal activity in EEG, and hyperdensity in MRI brain which could be suggestive of HSV encephalitis or limbic encephallitis. 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 In general, the cause of seizure is unclear at this moment, differential including HSV encephalitis, tick borne disease, paraneoplastic causes. - Patient Problems (1) Seizure Current Visit: Yes Status: Acute Code(s): R56.9 - UNSPECIFIED CONVULSIONS SNOMED Code(s): 50932382 Comment: - First episode during adulthood - Differential for now: HSV encephalitis, tick borne disease, paraneoplastic encephalitis - no electrolytes abnormality, brain ct normal - MRI brain: hyperdensity in hippocampi and [place] - EEG: right frontotemporal region acitvity lasting 55s, occasional right temporal sharp epileptiform discharge - start on keppra 1000mg and maintain on 500mg bid, checking trough today - plan for lumbar puncture today (2) Migraine Current Visit: Yes Status: Acute Code(s): G43.909 - MIGRAINE, UNSP, NOT INTRACTABLE, WITHOUT STATUS MIGRAINOSUS SNOMED Code(s): 43042366 Comment: - frequent migraine attack recently, usual 4times/year, now 2 times/ week - possible sleep apnea as a triger, consider outpt sleep study - consider gabapentin for prophylaxis, suggested by neurologist (3) GERD (gastroesophageal reflux disease) Current Visit: Yes Status: Acute Code(s): K21.9 - GASTRO-ESOPHAGEAL REFLUX DISEASE WITHOUT ESOPHAGITIS SNOMED Code(s): 393095712 Comment: history, no active GI issue (4) H/O hemicolectomy Current Visit: Yes Status: Acute Code(s): Z90.49 - ACQUIRED ABSENCE OF OTHER SPECIFIED PARTS OF DIGESTIVE TRACT SNOMED Code(s): 556422600 Comment: stable Status and Disposition: inpatient medicine Attestation Documenting Resident: Scarlett Pepper Supervising Physician: Stefany Bruno Attestation: This service has been performed in part by a resident under the direction of a teaching physician.I, Stefany Bruno, performed the service, or was physically present during the critical, or mckeon portions of the service, furnished by the resident. I participated in the management of the patient. <Faye Bruno - Last Filed: 06/23/19 21:07> Objective Active Medications: Acetaminophen (Tylenol Tab*) 650 mg PO Q4H PRN PRN Reason: FEVER/PAIN Al Hydrox/Mg Hydrox/Simethicone (Maalox Plus*) 30 ml PO Q6H PRN PRN Reason: INDIGESTION Famotidine (Pepcid Tab*) 20 mg PO DAILY [facility] Last Admin: 06/23/19 08:58 Dose: Not Given Levetiracetam (Keppra Tab*) 1,000 mg PO BID [facility] Last Admin: 06/23/19 08:56 Dose: 1,000 mg Multivitamins/Minerals (Theragran/Minerals Tab*) 1 tab PO DAILY [facility] Last Admin: 06/23/19 08:56 Dose: 1 tab Ondansetron HCl (Zofran Inj*) 4 mg IV Q4H PRN PRN Reason: NAUSEA/VOMITING Senna (Senokot 8.6 Mg Tab*) 1 tab PO BID PRN PRN Reason: CONSTIPATION Vital Signs - 8 hr 06/23/19 06/23/19 14:57 15:00 Temperature 99.9 F Pulse Rate 79 Respiratory 16 22 Rate Blood Pressure 137/76 (mmHg) O2 Sat by Pulse 96 Oximetry Result Diagrams: 06/23/19 06:09 06/23/19 06:09 Assess/Plan/Problems-Billing Assessment: Attestation Attending/Supervising Physician Comment: Mr. Saldivar is a 63 year old healthy man who presented with new onset seizures , once at home and again in the ED captured on EEG. MRI showed enhancement in the amygdala and hippocampi. Neurology was consulted and he was evaluated by Dr. Muhammad, who started keppra. Mr. Saldivar's only risk factor for seizures was that he had a febrile seizure as an infant. This morning, he is very well appearing, clear in cognition, appropriate, and his neuro exam is unremarkable. Significant on exam are b/l submandibular lymphadenopathy and a tongue laceration on the left side . LP done this morning shows an unremarkable cell count with mildly elevated protein and mildly elevated glucose. Cultures and serologies are pending, but low suspicion for infectious causes; paraneoplastic encephalitis remains a possibility, but he does not present with symptoms of encephalitis like memory impairment, psychiatric manifestations, altered level of consciousness, etc. Will await further serologies.
[2019-06-23 10:08] LABS: C Reactive Protein 11.97 mg/L (<8.01)
[2019-06-23] MEDS ORDERED: Diazepam TAB(*) 5 MG PO ONE (10:10)
[2019-06-23 12:07] LABS: Body Fluid Source Cerebral Spinal
--- NOTE | 2019-06-23 12:08 | PN ---
Subjective Date of Service: 06/23/19 Length of Stay: 1 Days Neurology is following for seizures. Interval History: Donis has not had any seizures overnight. He slept well. He is tolerating the increase dose in levetiracetam. The increase dose was done to make sure he has no further seizures since the EEG showed electrographic seizures yesterday. Please note that the EEG was done before he was ever started on levetiracetam. He is not irritable and has no history of any psychiatric conditions. He used to have mild anxiety. He denied any focal weakness or paresthesia. He denied any numbness or tingling sensation. He was started on acyclovir after the MRI results. Imaging studies: MRI brain with and without contrast completed on 06/22/2019: T2 Flair hyperintensity in bilateral amygdala and hippocampal areas. These can be seen with post-ictal state, HSV, or limbic encephalitis. EEG: focal partial seizure emanating from the right frontotemporal region. Right temporal epileptiform discharge. Review of Systems: Denied CP, SOB, or palpitations. Objective Active Medications: Acetaminophen (Tylenol Tab*) 650 mg PO Q4H PRN PRN Reason: FEVER/PAIN Al Hydrox/Mg Hydrox/Simethicone (Maalox Plus*) 30 ml PO Q6H PRN PRN Reason: INDIGESTION Famotidine (Pepcid Tab*) 20 mg PO DAILY [facility] Last Admin: 06/23/19 08:58 Dose: Not Given Acyclovir Sodium 710 mg/ (Sodium Chloride) 264.2 mls @ 264.2 mls/hr IVPB Q8H [facility] Last Admin: 06/23/19 08:56 Dose: 264.2 mls/hr Levetiracetam (Keppra Tab*) 1,000 mg PO BID [facility] Last Admin: 06/23/19 08:56 Dose: 1,000 mg Multivitamins/Minerals (Theragran/Minerals Tab*) 1 tab PO DAILY [facility] Last Admin: 06/23/19 08:56 Dose: 1 tab Ondansetron HCl (Zofran Inj*) 4 mg IV Q4H PRN PRN Reason: NAUSEA/VOMITING Senna (Senokot 8.6 Mg Tab*) 1 tab PO BID PRN PRN Reason: CONSTIPATION Vital Signs 06/22/19 06/23/19 06/23/19 22:20 00:04 03:15 Temperature 98.7 F 99.8 F 98.6 F Pulse Rate 68 68 74 Respiratory 18 16 18 Rate Blood Pressure 129/67 129/73 111/60 (mmHg) O2 Sat by Pulse 96 97 99 Oximetry 06/23/19 10:25 Temperature Pulse Rate Respiratory 18 Rate Blood Pressure (mmHg) O2 Sat by Pulse Oximetry Intake and Output Last 24 Hours 06/21/19 06/22/19 06/23/19 06/24/19 06:59 06:59 06:59 06:59 Intake Total 625 480 Output Total 0 Balance 625 480 Weight 202 lb 6.4 oz Intake: IV Fluids 350 IVPB 275 Oral 0 480 Output: Urine 0 Other: # Bowel Movements 0 Oxygen Devices in Use Now: None Neurology Exam: General: Well nourished, well developed, and in no acute distress HEENT: Normocephelic/atraumatic, sclera anicteric, mucous membranes moist Neck: Supple Chest: Clear to auscultation bilaterally Cardiovascular: Regular rate and rhythm without murmurs, rubs, gallops Extremities: No clubbing, cyanosis, or edema Neurological Findings: Awake, alert, and oriented to person, place, and time. Speech: fluent without dysarthria, repetition intact Cranial Nerve: PERRL, EOM intact, VFF, no nystagmus, face symmetric bilaterally , facial sensation intact, hearing intact to finger rub bilaterally, palate elevates symmetrically, tongue midline, SCM and Trapezius s/s. Motor: s/s throughout, proximal and distal extremities x4 tone/bulk normal Sensation: intact to LT/PP bilaterally upper and lower extremities Deep Tendon Reflex: 2+ symmetric in the upper/lower extremities, Babinski - down going Finger to nose, rapid alternating movements intact without tremor, no dysdiadochokinesia Gait: intact with good arm swing and stride Result Diagrams: 06/23/19 06:09 06/23/19 06:09 Additional Lab and Data: Lab Results 06/22/19 06/22/19 06/22/19 Range/Units 08:27 08:27 08:27 WBC 2.5 L (3.5-10.8) 10^3/uL RBC 2.00 L (4.18-5.48) 10^6 /uL RBC (Retic) 2.02 L (4.18-5.48) 10^6/uL Hgb 6.2 L* (14.0-18.0) g/dL Hct 18 L (42-52) % HCT (Retic) 18 L (42-52) % MCV 91 (80-94) fL MCH 31 (27-31) pg MCHC 34 (31-36) g/dL RDW 13 (10-15) % Plt Count 60 L (150-450) 10^3/uL MPV 7.8 (7.4-10.4) fL Neut % (Auto) 62.7 % Lymph % (Auto) 25.0 % [place] % (Auto) 9.0 % Eos % (Auto) 2.7 % Baso % (Auto) 0.6 % Absolute Neuts (auto) 1.6 (1.5-7.7) 10^3/ul Absolute Lymphs (auto) 0.6 L (1.0-4.8) 10^3/ul Absolute Monos (auto) 0.2 (0-0.8) 10^3/ul Absolute Eos (auto) 0.1 (0-0.6) 10^3/ul Absolute Basos (auto) 0.0 (0-0.2) 10^3/ul Absolute Nucleated RBC 0.0 10^3/ul Nucleated RBC % 0.2 Retic Count, Calc 1.4 (0.5-1.5) % Corrected Retic Count 0.6 (0.5-1.5) % Retic Shift Factor 2.5 Retic Production Index 0.20 Immature Retic Fraction 0.33 Mean Retic Volume 105.1 INR (Anticoag Therapy) Cancelled APTT Cancelled Sodium Cancelled Potassium Cancelled Chloride Cancelled Carbon Dioxide Cancelled Anion Gap Cancelled BUN Cancelled Creatinine Cancelled Est GFR ( Amer) Cancelled Est GFR (Non-Af Amer) Cancelled BUN/Creatinine Ratio Cancelled Glucose Cancelled Lactic Acid (0.5-2.0) mmol/L Calcium Cancelled Magnesium Cancelled Total Bilirubin Cancelled AST Cancelled ALT Cancelled Alkaline Phosphatase Cancelled Lactate Dehydrogenase Cancelled Total Creatine Kinase 36 (10-223) U/L Total Protein Cancelled Albumin Cancelled Globulin Cancelled Albumin/Globulin Ratio Cancelled Vitamin B12 TSH Urine Color Urine Appearance Urine pH (5-9) Ur Specific [place] (1.010-1.030) Urine Protein (Negative) Urine Ketones (Negative) Urine Blood (Negative) Urine Nitrate (Negative) Urine Bilirubin (Negative) Urine Urobilinogen (Negative) Ur Leukocyte Esterase (Negative) Urine WBC (Auto) (Absent) Urine RBC (Auto) (Absent) Urine Bacteria (Absent) Hyaline Casts (Absent) Urine Glucose (Negative) Blood Type Antibody Screen Crossmatch 06/22/19 06/22/19 06/22/19 Range/Units 08:27 08:27 09:24 WBC (3.5-10.8) 10^3/uL RBC (4.18-5.48) 10^6 /uL RBC (Retic) (4.18-5.48) 10^6/uL Hgb (14.0-18.0) g/dL Hct (42-52) % HCT (Retic) (42-52) % MCV (80-94) fL MCH (27-31) pg MCHC (31-36) g/dL RDW (10-15) % Plt Count (150-450) 10^3/uL MPV (7.4-10.4) fL Neut % (Auto) % Lymph % (Auto) % [place] % (Auto) % Eos % (Auto) % Baso % (Auto) % Absolute Neuts (auto) (1.5-7.7) 10^3/ul Absolute Lymphs (auto) (1.0-4.8) 10^3/ul Absolute Monos (auto) (0-0.8) 10^3/ul Absolute Eos (auto) (0-0.6) 10^3/ul Absolute Basos (auto) (0-0.2) 10^3/ul Absolute Nucleated RBC 10^3/ul Nucleated RBC % Retic Count, Calc (0.5-1.5) % Corrected Retic Count (0.5-1.5) % Retic Shift Factor Retic Production Index Immature Retic Fraction Mean Retic Volume INR (Anticoag Therapy) 1.04 APTT 33.7 Sodium Potassium Chloride Carbon Dioxide Anion Gap BUN Creatinine Est GFR ( Amer) Est GFR (Non-Af Amer) BUN/Creatinine Ratio Glucose Lactic Acid 2.6 H* (0.5-2.0) mmol/L Calcium Magnesium Total Bilirubin AST ALT Alkaline Phosphatase Lactate Dehydrogenase Total Creatine Kinase (10-223) U/L Total Protein Albumin Globulin Albumin/Globulin Ratio Vitamin B12 TSH Urine Color Urine Appearance Urine pH (5-9) Ur Specific [place] (1.010-1.030) Urine Protein (Negative) Urine Ketones (Negative) Urine Blood (Negative) Urine Nitrate (Negative) Urine Bilirubin (Negative) Urine Urobilinogen (Negative) Ur Leukocyte Esterase (Negative) Urine WBC (Auto) (Absent) Urine RBC (Auto) (Absent) Urine Bacteria (Absent) Hyaline Casts (Absent) Urine Glucose (Negative) Blood Type B Positive Antibody Screen Negative Crossmatch See Detail 06/22/19 06/22/19 06/22/19 Range/Units 09:38 09:39 09:39 WBC 7.5 (3.5-10.8) 10^3/uL RBC 5.36 (4.18-5.48) 10^6 /uL RBC (Retic) (4.18-5.48) 10^6/uL Hgb 16.2 (14.0-18.0) g/dL Hct 49 (42-52) % HCT (Retic) (42-52) % MCV 90 (80-94) fL MCH 30 (27-31) pg MCHC 34 (31-36) g/dL RDW 14 (10-15) % Plt Count 155 (150-450) 10^3/uL MPV 8.7 (7.4-10.4) fL Neut % (Auto) 77.7 % Lymph % (Auto) 14.0 % [place] % (Auto) 7.1 % Eos % (Auto) 0.8 % Baso % (Auto) 0.4 % Absolute Neuts (auto) 5.8 (1.5-7.7) 10^3/ul Absolute Lymphs (auto) 1.0 (1.0-4.8) 10^3/ul Absolute Monos (auto) 0.5 (0-0.8) 10^3/ul Absolute Eos (auto) 0.1 (0-0.6) 10^3/ul Absolute Basos (auto) 0.0 (0-0.2) 10^3/ul Absolute Nucleated RBC 0.0 10^3/ul Nucleated RBC % 0.0 Retic Count, Calc (0.5-1.5) % Corrected Retic Count (0.5-1.5) % Retic Shift Factor Retic Production Index Immature Retic Fraction Mean Retic Volume INR (Anticoag Therapy) APTT Sodium 140 Potassium 3.9 Chloride 107 Carbon Dioxide 24 Anion Gap 9 BUN 19 Creatinine 0.90 Est GFR ( Amer) 102.8 Est GFR (Non-Af Amer) 85.0 BUN/Creatinine Ratio 21.1 H Glucose 127 H Lactic Acid (0.5-2.0) mmol/L Calcium 9.1 Magnesium 2.1 Total Bilirubin 0.70 AST 30 ALT 39 Alkaline Phosphatase 56 Lactate Dehydrogenase Cancelled Total Creatine Kinase 185 (10-223) U/L Total Protein 7.6 Albumin 4.2 Globulin 3.4 Albumin/Globulin Ratio 1.2 Vitamin B12 Cancelled TSH Cancelled Urine Color Urine Appearance Urine pH (5-9) Ur Specific [place] (1.010-1.030) Urine Protein (Negative) Urine Ketones (Negative) Urine Blood (Negative) Urine Nitrate (Negative) Urine Bilirubin (Negative) Urine Urobilinogen (Negative) Ur Leukocyte Esterase (Negative) Urine WBC (Auto) (Absent) Urine RBC (Auto) (Absent) Urine Bacteria (Absent) Hyaline Casts (Absent) Urine Glucose (Negative) Blood Type Antibody Screen Crossmatch 06/22/19 06/22/19 Range/Units 11:04 12:54 WBC (3.5-10.8) 10^3/uL RBC (4.18-5.48) 10^6 /uL RBC (Retic) (4.18-5.48) 10^6/uL Hgb (14.0-18.0) g/dL Hct (42-52) % HCT (Retic) (42-52) % MCV (80-94) fL MCH (27-31) pg MCHC (31-36) g/dL RDW (10-15) % Plt Count (150-450) 10^3/uL MPV (7.4-10.4) fL Neut % (Auto) % Lymph % (Auto) % [place] % (Auto) % Eos % (Auto) % Baso % (Auto) % Absolute Neuts (auto) (1.5-7.7) 10^3/ul Absolute Lymphs (auto) (1.0-4.8) 10^3/ul Absolute Monos (auto) (0-0.8) 10^3/ul Absolute Eos (auto) (0-0.6) 10^3/ul Absolute Basos (auto) (0-0.2) 10^3/ul Absolute Nucleated RBC 10^3/ul Nucleated RBC % Retic Count, Calc (0.5-1.5) % Corrected Retic Count (0.5-1.5) % Retic Shift Factor Retic Production Index Immature Retic Fraction Mean Retic Volume INR (Anticoag Therapy) APTT Sodium Potassium Chloride Carbon Dioxide Anion Gap BUN Creatinine Est GFR ( Amer) Est GFR (Non-Af Amer) BUN/Creatinine Ratio Glucose Lactic Acid (0.5-2.0) mmol/L Calcium Magnesium Total Bilirubin AST ALT Alkaline Phosphatase Lactate Dehydrogenase Total Creatine Kinase (10-223) U/L Total Protein Albumin Globulin Albumin/Globulin Ratio Vitamin B12 712 TSH 0.71 Urine Color Straw Urine Appearance Clear Urine pH 7.0 (5-9) Ur Specific [place] 1.005 L (1.010-1.030) Urine Protein Negative (Negative) Urine Ketones Negative (Negative) Urine Blood 1+ A (Negative) Urine Nitrate Negative (Negative) Urine Bilirubin Negative (Negative) Urine Urobilinogen Negative (Negative) Ur Leukocyte Esterase Negative (Negative) Urine WBC (Auto) Trace(0-5/hpf) (Absent) Urine RBC (Auto) Trace(0-2/hpf) (Absent) Urine Bacteria Absent (Absent) Hyaline Casts Present A (Absent) Urine Glucose Negative (Negative) Blood Type Antibody Screen Crossmatch Assessment/Plan Assessment and recommendations: Mr. Donis Saldivar is a 63-year-old right-handed man with history of febrile seizures who had a witnessed seizure on 06/22/2019. He has no focal neurological deficits on neurological assessment except mild post-ictal drowsiness. The MRI brain with and without contrast reported T2 Flair hyperintensity in bilateral amygdala and hippocampus. This finding can be seen in recent seizures, HSV, or limbic encephalitis. EEG showed right temporal sharp epileptiform discharge and a recorded focal electrographic seizure emanating from the right frontotemporal region, lasting 55 seconds on 2018. He was started on levetiracetam 1,000 mg IV x 1 dose then continued on PO twice daily. 1. Complex partial seizure with secondary generalization: the etiology is unclear. He does have history of febrile seizures which increases his risk for temporal lobe epilepsy. Other risk factor include presumed obstructive sleep apnea. - the patient had one convulsive seizure and an electrographic seizure on EEG within 24 hours - He is tolerating levetiracetam without any reported agitation or irritability 2. Abnormal brain MRI- most likely due to edema secondary to seizures. We will proceed with work-up to rule out HSV or limbic encephalitis. The patient does not seem clinically ill, afebrile, has had no further seizure, has no recent psychiatric history, and has no lateralizing neurological deficits to suspect HSV or limbic encephalitis. An LP was done by me today. Pending results. 3. Hx of Lyme disease- I don't suspect this is related to Lyme as he has no headache or polyradiculopathy. He has no recent rash. He was treated for Zoster in the past. Defer further management to the primary team. Recommendation: - If the CSF protein and WBC are within normal range, then discontinue the acylcovir. - Ordered the following: cell count and diff, culture, glucose, protein, autoimmune encephalopathy, HSV PCR, cryptococcal antigen. - Continue neuro checks every 4 hours - Driving restriction was reiterated today. The [facility] DM rules and regulations were discussed. The patient should not drive for at least 6-12 months. He also should not be climbing ladders or rooftops. - Continue levetiracetam 1,000 mg PO twice daily - Please obtain a trough levetiracetam level - Encourage OOB to chair - Follow-up with neurology in 6-8 weeks - I will continue to follow. Discussed with Dr. Bruno.
--- NOTE | 2019-06-23 12:14 | OP ---
Operative Report - Blank - Operative Report Date of Operation: 06/23/19 Note: Lumbar Puncture Procedure Note Pre-operative Diagnosis: Seizure, evaluate for HSV encephalitis Post-operative Diagnosis: same Indications: Diagnostic Procedure Details Consent: Informed consent was obtained. Time out was performed with JOVON Carrillo at 11:00. Risks of the procedure were discussed including: infection, bleeding , pain and headache. Under sterile conditions the patient was positioned in the RIGHT lateral decubitus position in a semi- position. Betadine solution and sterile drapes were utilize . A 22-gauge 3.5-inch spinal needle was inserted at the L3- 4 interspace. Findings 4 cc of clear spinal fluid was obtained Opening Pressure: Not checked Complications:None Condition: stable Plan Bed Rest for 3 hours Tylenol 650 mg for pain If severe headache, nausea, vomiting, fever >100.5 F or focal neurological changes, call the on-call neurologist. Obtain CSF laboratory data cell count and differential, gram stain and culture, glucose, protein, cryptococcal antigen, paraneoplastic encephalopathy panel, and HSV PCR. Please continue to hold enoxaprin for 24 hours after the procedure. Lorenzo Muhammad MD 11:15 06/23/2019
[2019-06-23 12:29] LABS: CSF Glucose 73 mg/dL (40-70)
[2019-06-24] MEDS: levETIRAcetam TAB* 500 MG PO SCH (07:50)
[2019-06-24] MEDS: Multivitamins/Minerals TAB PO SCH (07:50)
[2019-06-24] MEDS: Famotidine TAB* 20 MG PO SCH (07:51)
--- NOTE | 2019-06-24 10:15 | EEG ---
ELECTROENCEPHALOGRAPHY: DATE OF SERVICE: 06/23/19 DATE READ: 06/24/19 DURATION: 13:39-14:16. INDICATION: Mr. Donis Saldivar is a 63-year-old man who had complex partial seizure with secondary generalization. The patient has history of febrile seizures. This EEG was obtained to evaluate for any improvement of the seizures or any recording of nonconvulsive seizures as he had one episode of focal seizure with minimal clinical correlation on 06/22/19. This EEG was obtained to evaluate for epileptiform abnormalities or electrographic seizures. MEDICATIONS: 1. Pepcid. 2. Keppra. 3. Multivitamin. 4. Acyclovir. 5. Tylenol. 6. Maalox. 7. Zofran. 8. Senokot. CLINICAL STATE: Predominantly sleep state. BACKGROUND: The background consisted of a mixed frequency slowing in the delta and theta range with appropriate organization and clearly defined anterior- posterior voltage gradient. There was normal, but poorly sustained posterior dominant rhythm of 9 Hz, which was symmetrical and showed normal reactivity. Throughout the recording, there were diffuse, medium amplitude, frequent paroxysmal slowing with 1 to 3 Hz of delta slowing lasting for 1-5 seconds. There were no epileptiform discharges. Hyperventilation and photic stimulation were not performed. Single- electrode EKG showed normal sinus rhythm. Throughout the recording, there were no electrographic seizures. Attenuation of the occipital rhythm accompanied drowsiness. The sleep background was disorganized with persistent theta frequency in brief runs of sleep spindles and vertex waves. IMPRESSION: This is an abnormal awake and sleep EEG due to the presence of intermittent slowing with predominantly diffuse delta slowing seen throughout the recording. Otherwise, it was of normal organization reactivity during the brief awaking state. These findings are suggestive of a mild nonspecific encephalopathy. There were no epileptiform discharges or electrographic seizures. This EEG showed improvement in the background with no seizures when compared to the study from 06/22/2019. [id number]/[facility] #: [id number] [facility]
--- NOTE | 2019-06-24 10:44 | PN ---
Subjective Date of Service: 06/24/19 Length of Stay: 2 Days Neurology is following for seizures. Interval History: No seizures overnight. He is resting comfortable and wishes to go home today. He has tongue soreness related to the laceration. He denied any headache or visual disturbance. Review of Systems: Denied CP, SOB, or palpitations. Objective Active Medications: Acetaminophen (Tylenol Tab*) 650 mg PO Q4H PRN PRN Reason: FEVER/PAIN Al Hydrox/Mg Hydrox/Simethicone (Maalox Plus*) 30 ml PO Q6H PRN PRN Reason: INDIGESTION Famotidine (Pepcid Tab*) 20 mg PO DAILY [facility] Last Admin: 06/24/19 07:51 Dose: Not Given Levetiracetam (Keppra Tab*) 1,000 mg PO BID [facility] Last Admin: 06/24/19 07:50 Dose: 1,000 mg Multivitamins/Minerals (Theragran/Minerals Tab*) 1 tab PO DAILY [facility] Last Admin: 06/24/19 07:50 Dose: 1 tab Senna (Senokot 8.6 Mg Tab*) 1 tab PO BID PRN PRN Reason: CONSTIPATION Vital Signs 06/23/19 06/23/19 06/23/19 11:00 14:57 15:00 Temperature 97.7 F 99.9 F Pulse Rate 82 79 Respiratory 16 16 22 Rate Blood Pressure 142/71 137/76 (mmHg) O2 Sat by Pulse 96 96 Oximetry 06/23/19 06/23/19 06/24/19 19:00 23:00 03:00 Temperature 98.9 F 99.0 F 98.7 F Pulse Rate 74 64 55 Respiratory 22 16 16 Rate Blood Pressure 137/78 132/73 118/72 (mmHg) O2 Sat by Pulse 95 95 97 Oximetry 06/24/19 07:30 Temperature 96.7 F Pulse Rate 55 Respiratory 20 Rate Blood Pressure 126/75 (mmHg) O2 Sat by Pulse 98 Oximetry Intake and Output Last 24 Hours 06/22/19 06/23/19 06/24/19 06/25/19 06:59 06:59 06:59 06:59 Intake Total 625 1400 360 Output Total 0 0 Balance 625 1400 360 Weight 202 lb 6.4 oz Intake: IV Fluids 350 IVPB 275 Oral 0 1400 360 Output: Urine 0 0 Other: Estimated Void Medium # Bowel Movements 0 1 # Voids 3 Oxygen Devices in Use Now: None Neurology Exam: General: Well nourished, well developed, and in no acute distress HEENT: Normocephelic/atraumatic, sclera anicteric, mucous membranes moist. Right lateral Tongue laceration which is healing. Neck: Supple Chest: Clear to auscultation bilaterally Cardiovascular: Regular rate and rhythm without murmurs, rubs, gallops Extremities: No clubbing, cyanosis, or edema Neurological Findings: Awake, alert, and oriented to person, place, and time. Speech: fluent without dysarthria, repetition intact Cranial Nerve: PERRL, EOM intact, VFF, no nystagmus, face symmetric bilaterally Motor: s/s throughout, proximal and distal extremities x4 tone/bulk normal Sensation: intact to LT/PP bilaterally upper and lower extremities Deep Tendon Reflex: 2+ symmetric in the upper/lower extremities, Babinski - down going Finger to nose, rapid alternating movements intact without tremor, no dysdiadochokinesia Gait: intact with good arm swing and stride Result Diagrams: 06/23/19 06:09 06/23/19 06:09 Additional Lab and Data: CSF: protein 46. glucose 73, cell count 4. WBC 0. CSF gram stain: preliminary negative. Microbiology and Other Data: Microbiology 06/23/19 11:25 CSF Gram Stain (Tube 3) - Final Cerebral Spinal Fluid 06/22/19 11:04 Urine Culture - Final Urine No Growth (<1,000 CFU/mL) Assessment/Plan Assessment and recommendations: Mr. Donis Saldivar is a 63-year-old right-handed man with history of febrile seizures who had a witnessed seizure on 06/22/2019. He has no focal neurological deficits on neurological assessment except mild post-ictal drowsiness. The MRI brain with and without contrast reported T2 Flair hyperintensity in bilateral amygdala and hippocampus. This finding can be seen in recent seizures, HSV, or limbic encephalitis. EEG showed right temporal sharp epileptiform discharge and a recorded focal electrographic seizure emanating from the right frontotemporal region, lasting 55 seconds on 2018. He was started on levetiracetam 1,000 mg IV x 1 dose then continued on PO twice daily. No seizures overnight. 1. Complex partial seizure with secondary generalization: the etiology is unclear. He does have history of febrile seizures which increases his risk for temporal lobe epilepsy. Other risk factor include presumed obstructive sleep apnea. - the patient had one convulsive seizure and an electrographic seizure on EEG within 24 hours - He is tolerating levetiracetam without any reported agitation or irritability 2. Abnormal brain MRI- most likely due to edema secondary to seizures. We will proceed with work-up to rule out HSV or limbic encephalitis. The patient does not seem clinically ill, afebrile, has had no further seizure, has no recent psychiatric history, and has no lateralizing neurological deficits to suspect HSV or limbic encephalitis. LP was done yesterday. 3. Hx of Lyme disease- I don't suspect this is related to Lyme as he has no headache or polyradiculopathy. He has no recent rash. He was treated for Zoster in the past. Defer further management to the primary team. Recommendation: - Discontinued acyclovir as the CSF WBC is 0. It's unlikely he has HSV. - Ordered the following: pending autoimmune encephalopathy, HSV PCR, cryptococcal antigen. - Continue neuro checks every 4 hours - Driving restriction was reiterated again today. The [facility] DMV rules and regulations were discussed. The patient should not drive for at least 6-12 months. He also should not be climbing ladders or rooftops. - Continue levetiracetam 1,000 mg PO twice daily - Please obtain a trough levetiracetam level - Encourage OOB to chair - Follow-up with neurology in 6-8 weeks - Ready for discharges Discussed with Dr. Bruno.
[2019-06-24 11:22] VITALS: BP 135/79
--- NOTE | 2019-06-24 14:48 | PN ---
<Scarlett Pepper - Last Filed: 06/24/19 14:39> Subjective Date of Service: 06/24/19 Interval History: No overnight issues noted Patient feels back to his normal self today, light headiness is resolved. Still feels pain at the lumbar puncture site. Labs: lyme antibody still pending. Objective Active Medications: Acetaminophen (Tylenol Tab*) 650 mg PO Q4H PRN PRN Reason: FEVER/PAIN Al Hydrox/Mg Hydrox/Simethicone (Maalox Plus*) 30 ml PO Q6H PRN PRN Reason: INDIGESTION Famotidine (Pepcid Tab*) 20 mg PO DAILY [facility] Last Admin: 06/24/19 07:51 Dose: Not Given Levetiracetam (Keppra Tab*) 1,000 mg PO BID [facility] Last Admin: 06/24/19 07:50 Dose: 1,000 mg Multivitamins/Minerals (Theragran/Minerals Tab*) 1 tab PO DAILY [facility] Last Admin: 06/24/19 07:50 Dose: 1 tab Senna (Senokot 8.6 Mg Tab*) 1 tab PO BID PRN PRN Reason: CONSTIPATION Vital Signs - 8 hr 06/24/19 06/24/19 07:30 11:00 Temperature 96.7 F 96.9 F Pulse Rate 55 67 Respiratory 20 17 Rate Blood Pressure 126/75 135/79 (mmHg) O2 Sat by Pulse 98 92 Oximetry Oxygen Devices in Use Now: None Exam: Alert, oriented x 4 Heart: normal S1S2 Lung: clear Abdomen: soft, non tender Result Diagrams: 06/23/19 06:09 06/23/19 06:09 Additional Lab and Data: CSF: protein 46. glucose 73, cell count 4. WBC 0. CSF gram stain: preliminary negative. Microbiology and Other Data: Microbiology 06/23/19 11:25 CSF Gram Stain (Tube 3) - Final Cerebral Spinal Fluid 06/22/19 11:04 Urine Culture - Final Urine No Growth (<1,000 CFU/mL) Assess/Plan/Problems-Billing Assessment and recommendations: Mr. Donis Saldivar is a 63-year-old right-handed man with history of febrile seizures presented with a witnessed seizure on 06/22/2019. He was also found to have complex partial seizure with secondary generalization during admission. The etiology is unclear, less likely to be infective or autoimmune causes based on LP results. But we will wait for full workup results. - Patient Problems (1) Seizure Status: Acute Code(s): R56.9 - UNSPECIFIED CONVULSIONS SNOMED Code(s): 09797290 Comment: - First episode during adulthood - Differential for now: HSV encephalitis, tick borne disease, paraneoplastic encephalitis - no electrolytes abnormality, brain ct normal - MRI brain: hyperdensity in hippocampi and amyglada - EEG: right frontotemporal region acitvity lasting 55s, occasional right temporal sharp epileptiform discharge - LP: little cells found, protein and glucose upper limit normal, not inflammtory in nature; awaiting full workup to come back - continue keppra 1000mg bid on discharge, followup with neuro in 4-6 weeks, instructed patient no driving allowed (2) Migraine Status: Acute Code(s): G43.909 - MIGRAINE, UNSP, NOT INTRACTABLE, WITHOUT STATUS MIGRAINOSUS SNOMED Code(s): 58115099 Comment: - frequent migraine attack recently, usual 4times/year, now 2 times/ week - possible sleep apnea as a triger, consider outpt sleep study - consider gabapentin for prophylaxis, suggested by neurologist (3) GERD (gastroesophageal reflux disease) Status: Acute Code(s): K21.9 - GASTRO-ESOPHAGEAL REFLUX DISEASE WITHOUT ESOPHAGITIS SNOMED Code(s): 582927268 Comment: history, no active GI issue (4) H/O hemicolectomy Status: Acute Code(s): Z90.49 - ACQUIRED ABSENCE OF OTHER SPECIFIED PARTS OF DIGESTIVE TRACT SNOMED Code(s): 848543259 Comment: stable Status and Disposition: Discharge today Attestation Documenting Resident: Scarlett Pepper Supervising Physician: Stefany Bruno Attestation: This service has been performed in part by a resident under the direction of a teaching physician.I, Stefany Bruno, performed the service, or was physically present during the critical, or mckeon portions of the service, furnished by the resident. I participated in the management of the patient. <Faye Bruno - Last Filed: 06/24/19 21:42> Objective Result Diagrams: 06/23/19 06:09 06/23/19 06:09 Assess/Plan/Problems-Billing Assessment: Attestation Attending/Supervising Physician Comment: Viral encephalitis ruled out with LP cell count. Paraneoplastic remains on the differential. More serologies pending. Dr. Muhammad suggests that MRI findings are reflective of recent seizure and not the cause of them. Will DC on [facility] with neurology follow up. No driving.
[2019-06-24 15:45] LABS: HSV 1 PCR, CSF Negative (Negative); HSV 2 PCR, CSF Negative (Negative)
[2019-06-24 17:00] LABS: CSF VDRL Negative (Negative)
[2019-06-25 18:35] LABS: Anaplasma phagocytophilum Negative (Negative); B. miyamotoi PCR, B Negative (Negative); Babesia divergens/MO-1 Negative (Negative); Babesia ducani Negative (Negative); Ehrlichia chaffeensis Negative (Negative); Ehrlichia ewingii/canis Negative (Negative); Ehrlichia muris eauclairensis Negative (Negative)
--- NOTE | 2019-06-26 15:32 | DS ---
Resident Discharge Summary Discharge Summary: Date of Admission: 06/22/19 Date of Discharge: 06/24/19 Admitting MD: Rhonda Henning MD Attending MD: Faye Bruno DO Primary Care Physician: Daiana Antonio MD Home Medications Medication Instructions Recorded Confirmed Type Famotidine TAB* [Pepcid 20 MG TAB*] 20 mg PO DAILY 06/22/19 06/22/19 History Multivitamins/Minerals TAB* 1 tab PO DAILY 06/22/19 06/22/19 History [Theragran/minerals TAB*] levETIRAcetam TAB* [Keppra TAB*] 1,000 mg PO BID #120 tab 06/24/19 Rx Change in Medication include: added Keppra 1000mg bid for seizure Disposition: Home Condition: Stable Primary Diagnosis: 1. Seizure Secondary Diagnosis: 1. Migraines 2. GERD 3. Diverticulitis 4. Colectomy due to diverticulitis 5. Varicose Vein Procedure Diagnostic Imaging: Brain CT, 06/22/2019, no abnormality Brain MRI, 06/22/2019, T2 Flair hyperintensity extends along the amygdala and hippocampi bilaterally. Although this could be postictal in etiology, an underlying HSV encephalitis or limb encephalitis cannot be excluded. Pertinent Laboratory Results: EEG 06/22/2019, 1. Focal, semirhythmic sharply contoured theta activity that evolves into delta activity, lasting for 55s in the right frontotemporal region. This is suggestive of a focal electrographic seizure with some correlation of confusion during the episode. 2. Occasional right temporal sharp epileptiform discharges seen predorminantly during drowsy state. These suggestive of increase epileptogenic potential emanating from the right temporal lobe 3. Diffuse polymorphic slowing with frontal intermittent rhythmic delta activity , suggestive of diffuse encephalopathy. EEG 06/23/2019, No epileptiform discharges noted. Lumbar puncture 06/23/2019 CSF WBC 0, RBC 5, glucose 73 (H), total protein 46 (H) CSF VDRL, cryptococcus, HSV, herpes all negative Serology: Lyme total antibody postive, other tick borne pathogen pcr negative Hospital Course: Mr. Donis Saldivar is a 63-year-old right-handed man with history of febrile seizures at 2, migraines, GERD, who presented with a witnessed seizure on 2018. He was witnessed to have a seizure 7:30am by his partner, lasting 1.5- 2mins, no loss of bowel or bladder control, a/w lateral tongue bitting, a/w post ictal drowsiness for 20-30 minutes. Hospital course by problem, 1. Seizure Multiple investigations were done on admission, no electrolytes abnormality was found, brain CT was normal, MRI noted to have hyperdensity in hippocampi and amyglada which can be a feature of post ictal status vs HSV encephalitis vs limbic encephalitis. Neurology was consulted, IV keppra 1000mg bid was started. They favored postictal state. In view of the MRI findings, IV acyclovir was started to cover HSV encephalitis. However, Pt developed another episode of complex partial seizure with secondary generalization same day of admission. EEG was performed, showing right frontotemporal region acitvity and right temporal sharp epileptiform discharge. Lumbar puncture found little cells, protein and glucose upper limit levels. By the time of discharge, the etiology of seizure is still unclear.It's less likely to be infective or autoimmune causes based on LP results. He does have history of febrile seizure which increase risk of temporal lobe epilepsy, thus maintenance keppra dose was given. Pt was advised against driving for at least 6-12 months until neurologist clear it. Neurology followed closely and recommended discharge on keppra. They will see him in outpatient. At the time of discharge, lyme serologies are pending, but again, his clinical picture and LP results did not fit with lyme encephalitis. 2. Migraine Pt had frequent migraine attack before this admission, his usual frequency is 4 times per year, it increases to 2 times per week. His migraines are associated with an aura of flashing light, a/w nausea and photophobia. He did notice an increased frequency of migraine leading up to this seizure. Though no migraine this admission, patient was advised trial of gabapentin and follow up with neurologist outpatient. 3. History of lyme disease Pt admitted that he was found to have lyme disease presented with facial palsy last year, followed by herpes zoster eruption on left arm. He had another tick bite 1 week before this admission. Thus Lyme disease and tick borne disease panel was sent. However his CSF fluid has no pleocytosis which is unlike Lyme. His Lyme total antibody came back positive when I wrote this summary which is 2 days after discharge, we will follow up his confimatory test closely. 4. DVT prophylaxis DVT risk score is 2, non medication prescribed for prophylaxis as low risk. Follow Up Instructions: Patient will need follow up with [facility] neurology in 6-8 weeks time. Also follow up with PCP in 1-2 weeks time. In case of an emergency or after clinic hours, please go to your nearest Emergency Department. You may also call the [facility] lining machine operator at . Attestation Documenting Resident: Scarlett Pepper Supervising Physician: James Bruno Attestation: This service has been performed in part by a resident under the direction of a teaching physician.I, James Bruno, performed the service, or was physically present during the critical, or mckeon portions of the service, furnished by the resident. I participated in the management of the patient.
[2019-06-29 13:04] LABS: Albumin 3420 mg/dL; CSF Albumin 21.2 mg/dL (<=27.0); CSF IGG 3.2 mg/dL (<=8.1); Immunoglobulin G 1150 mg/dL (767 - 1590)
[2019-06-29 16:57] LABS: Lyme CNS IgG Ab Index Interp Positive
== END 2019-06-24 14:15 | disposition home or self-care (01) ==
LOC: ED 08:01 → MED 17:44
PROVIDERS: ADMIT Internal Medicine; ATTEND Internal Medicine
DX: R56.9 Unspecified convulsions (principal); K21.9 Gastro-esophageal reflux disease without esophagitis; K57.92 Diverticulitis of intestine, part unspecified, without perforation or abscess without bleeding; G43.909 Migraine, unspecified, not intractable, without status migrainosus; Z90.49 Acquired absence of other specified parts of digestive tract; Z79.899 Other long term (current) drug therapy; Z86.19 Personal history of other infectious and parasitic diseases
CPT/HCPCS: 36415; 62270; 70450; 70553; 80048; 80053; 80177; 81003; 81015; 82040; 82042; 82550; 82607; 82784; 82945; 83519; 83605; 83735; 84157; 84443; 85025; 85045; 85610; 85730; 86140; 86255; 86341; 86592; 86617; 86618; 86850; 86900; 86901; 86922; 87070; 87086; 87205; 87529; 87798; 87899; 89051; 93005; 95819; 96365; 96366; 96367; 99284; A9270-GY; A9579; G0378; J0133; J1953